=== PATIENT | male | born 1940 | race Caucasian/White ===

== ENCOUNTER 2023-05-24 14:57 | Inpatient (IN) | payer MEDICARE ==
[2023-05-24 17:20] VITALS: BMI 21.7
[2023-05-24] MEDS ORDERED: Acetaminophen 650 MG Suppository PR PRN (17:20)
[2023-05-24] MEDS ORDERED: Acetaminophen 325 MG TAB PO PRN (17:20)
[2023-05-24] MEDS ORDERED: Albuterol 200 PUFF (6.7GM INHALER) INH PRN (17:20)
[2023-05-24] MEDS ORDERED: Benzonatate 100 MG CAP PO PRN (17:20)
[2023-05-24] MEDS ORDERED: Ondansetron PF 4 MG/2 ML Vial IVP PRN (17:26)
[2023-05-24] MEDS ORDERED: Ondansetron ODT 4 MG TAB PO PRN (17:26)
[2023-05-24] MEDS ORDERED: Ventolin HFA Inhaler 60 PUFF INHALER INH PRN (17:28)
[2023-05-24] MEDS ORDERED: REMDESIVIR 200 MG in Sodium Chloride 0.9% 250 ML 210 ML IV SCH (20:00)
[2023-05-24] MEDS: Dexamethasone 20 MG/5 ML VIAL SLOW IVP SCH (21:08)
[2023-05-25 04:18] LABS: #Monocytes 0.2 10x3/uL (0.0-1.1); #Neutrophils 10.3 10x3/uL (1.5-8.4); %Basophils 0.2 % (0.0-2.0); %Lymphocytes 9.3 % (18.0-47.0); %Monocytes 1.5 % (0.0-10.0); %Neutrophils 88.1 % (40.0-75.0); Hematocrit 33.9 % (38.8-50.0); Hemoglobin 11.6 g/dL (13.5-17.5); Mean Corpuscular HGB CONC 34.2 g/dL (32.0-36.0); Mean Corpuscular Hemoglobin 33.2 pg (27.0-33.0); Mean Corpuscular Volume 97.1 fl (81.2-95.1); Mean Platelet Volume 10.5 fl (7.4-10.4); Platelet Count 218 10x3/uL (150-450); RBC Distribution Width 12.9 % (11.5-14.5); Red Blood Cell (RBC) Count 3.49 10x6/uL (4.32-5.72); White Blood Cell (WBC) Count 11.7 10x3/uL (3.5-10.5)
[2023-05-25 04:19] LABS: ALT (SGPT) 13 U/L (8-55); AST (SGOT) 19 U/L (5-34); Albumin 3.1 g/dL (3.4-4.8); Alkaline Phosphatase 63 U/L (40-110); Anion Gap 14 mmol/L (10-20); BUN (Urea Nitrogen) 18 mg/dL (8.4-25.7); Bilirubin, Direct 0.2 mg/dL (0.1-0.3); Bilirubin, Total 0.2 mg/dL (0.2-1.2); Calc. Creatinine Clearance 53 mL/min (70-130); Calcium 8.8 mg/dL (7.8-10.44); Carbon Dioxide 22 mmol/L (23-31); Chloride 104 mmol/L (98-107); Estimated GFR 66; Glucose 220 mg/dL (83-110); Potassium 4.7 mmol/L (3.5-5.1); Protein, Total 6.8 g/dL (5.8-8.1); Sodium 135 mmol/L (136-145)
[2023-05-25] MEDS ORDERED: Azithromycin 500 MG in Sodium Chloride 0.9% 250 ML 250 ML IVPB SCH (08:30)
[2023-05-25] MEDS: Pantoprazole 40 MG VIAL IVP SCH (09:30)
[2023-05-25] MEDS: cefTRIAXone\\ROCEPHIN 1 GM in Sodium Chloride 0.9% 100 ML IVPB SCH (09:30)
[2023-05-25] MEDS: Dexamethasone 20 MG/5 ML VIAL SLOW IVP SCH ×2 (09:30→21:46)
[2023-05-25] MEDS: Azithromycin 500 MG in Sodium Chloride 0.9% 250 ML 250 ML IVPB SCH (11:12)
[2023-05-25 18:42] LABS: Hemoglobin A1c 5.1 % (4.0-6.0)
[2023-05-25] MEDS ORDERED: REMDESIVIR 100 MG in Sodium Chloride 0.9% 250 ML 230 ML IV SCH (21:00)
[2023-05-26 04:04] LABS: ALT (SGPT) 15 U/L (8-55); AST (SGOT) 25 U/L (5-34); Albumin 2.9 g/dL (3.4-4.8); Alkaline Phosphatase 62 U/L (40-110); Anion Gap 15 mmol/L (10-20); BUN (Urea Nitrogen) 21 mg/dL (8.4-25.7); Bilirubin, Direct 0.1 mg/dL (0.1-0.3); Bilirubin, Total 0.2 mg/dL (0.2-1.2); Calc. Creatinine Clearance 60 mL/min (70-130); Calcium 8.5 mg/dL (7.8-10.44); Carbon Dioxide 21 mmol/L (23-31); Chloride 104 mmol/L (98-107); Estimated GFR 78; Glucose 172 mg/dL (83-110); Potassium 4.5 mmol/L (3.5-5.1); Protein, Total 6.2 g/dL (5.8-8.1); Sodium 135 mmol/L (136-145)
[2023-05-26 04:12] LABS: #Basophils 0.1 10x3/uL (0.0-0.2); #Monocytes 0.5 10x3/uL (0.0-1.1); #Neutrophils 19.2 10x3/uL (1.5-8.4); %Basophils 0.3 % (0.0-2.0); %Eosinophils 0.2 % (0.0-6.0); %Lymphocytes 6.4 % (18.0-47.0); %Monocytes 2.5 % (0.0-10.0); %Neutrophils 87.5 % (40.0-75.0); Hematocrit 32.2 % (38.8-50.0); Hemoglobin 10.9 g/dL (13.5-17.5); Mean Corpuscular HGB CONC 33.9 g/dL (32.0-36.0); Mean Corpuscular Hemoglobin 32.8 pg (27.0-33.0); Mean Platelet Volume 10.5 fl (7.4-10.4); Platelet Count 248 10x3/uL (150-450); Red Blood Cell (RBC) Count 3.32 10x6/uL (4.32-5.72); White Blood Cell (WBC) Count 21.9 10x3/uL (3.5-10.5)
[2023-05-26] MEDS: Dexamethasone 20 MG/5 ML VIAL SLOW IVP SCH (08:57)
[2023-05-26] MEDS: cefTRIAXone\\ROCEPHIN 1 GM in Sodium Chloride 0.9% 100 ML IVPB SCH (08:58)
[2023-05-26] MEDS: Pantoprazole 40 MG VIAL IVP SCH (08:58)
[2023-05-26] MEDS: Azithromycin 500 MG in Sodium Chloride 0.9% 250 ML 250 ML IVPB SCH (10:33)
[2023-05-26 13:02] VITALS: BP 131/59; TEMP 97.5
== END 2023-05-26 12:30 | disposition home or self-care (01) | DRG 177 ==
LOC: CSHTELE 16:21
PROVIDERS: ADMIT Internal Medicine; ATTEND Internal Medicine
PROC: XW033E5 Introduction of Remdesivir Anti-infective into Peripheral Vein, Percutaneous Approach, New Technology Group 5 (ICD-10-PCS; principal; 2023-05-24)
DX: U07.1 COVID-19 (principal); J12.82 Pneumonia due to coronavirus disease 2019; J96.01 Acute respiratory failure with hypoxia; G93.40 Encephalopathy, unspecified; M35.00 Sjogren syndrome, unspecified; R41.0 Disorientation, unspecified; R73.09 Other abnormal glucose; R73.9 Hyperglycemia, unspecified; R53.81 Other malaise; Z79.82 Long term (current) use of aspirin; Z79.899 Other long term (current) drug therapy; Z98.49 Cataract extraction status, unspecified eye; Z87.891 Personal history of nicotine dependence
CPT/HCPCS: 36415; 80048; 80076; 83036; 84145; 85025; 86140; 94760; C9113; J0248; J0456; J0696; J1100; J1650; J3490; J7050